=== PATIENT | male | born 1980 | race Caucasian/White ===

== ENCOUNTER 2020-03-08 17:24 | Emergency (ER) | payer OTHER, SELFPAY ==
[2020-03-08 18:39] LABS: #Basophils 0.1 thou/uL (0.0-0.2); #Eosinphils 0.1 thou/uL (0.0-0.7); #Lymphocytes 1.8 thou/uL (1.20-3.40); #Monocytes 0.9 thou/uL (0.11-0.59); #Neutrophils 7.8 thou/uL (1.40-6.50); %Basophils 1.3 % (0.0-1.0); %Eosinophils 1.3 % (0.0-10.0); %Monocytes 8.6 % (0.0-10.0); %Neutrophils 71.8 % (42.0-75.0); Mean Corpuscular HGB CONC 34.3 g/dL (32.0-36.0); Mean Corpuscular Hemoglobin 33.2 pg (27.0-31.0); Mean Corpuscular Volume 96.9 fL (78.0-98.0); Platelet Count 282 thou/uL (130-400); RBC Distribution Width 12.3 % (11.5-14.5); Red Blood Cell (RBC) Count 4.21 mill/uL (4.70-6.10); White Blood Cell (WBC) Count 10.9 thou/uL (4.8-10.8)
[2020-03-08 18:54] LABS: Bacteria/HPF None Seen HPF (None Seen); Bilirubin Negative (Negative); Blood, Urine Trace (Negative); Clarity Clear (Clear); Glucose, Urine (Dipstick) Normal (Negative); Ketone, Urine Trace mg/dL (Negative); Leukocyte Negative Leu/uL (Negative); Nitrite Negative (Negative); Protein, Urine (Dipstick) 20 mg/dL (Neg-Trace); RBC/HPF 0-3 HPF (0-3); Specific Gravity, Urine 1.018 (1.002-1.036); Squamous Epithelial None Seen HPF (0-3); Urobilinogen Normal mg/dL (Less than 2); WBC/HPF 0-3 HPF (0-3)
--- NOTE | 2020-03-08 19:04 | RAD ---
PORTABLE CHEST: 03/08/20 HISTORY: Seizure. Patient hit head. Heart size and mediastinum are within normal limits. The lungs are clear of any infiltrates. No signi ficant bony findings. IMPRESSION: No active intrathoracic disease. POS: OFF
[2020-03-08 19:14] LABS: ALT (SGPT) Less than 7 U/L (8-55); AST (SGOT) 18 U/L (5-34); Albumin 4.4 g/dL (3.5-5.0); Alkaline Phosphatase 93 U/L (40-110); Anion Gap 13 mmol/L (10-20); BUN (Urea Nitrogen) 9 mg/dL (8.9-20.6); Bilirubin, Total 0.6 mg/dL (0.2-1.2); CK (CPK) 302 U/L (30-200); Calc. Creatinine Clearance 0 mL/min (70-130); Calcium 8.6 mg/dL (7.8-10.44); Carbon Dioxide 23 mmol/L (22-29); Chloride 105 mmol/L (98-107); Estimated GFR-MDRD Greater than 90; Globulin 2.5 g/dL (2.4-3.5); Glucose 153 mg/dL (70-105); Potassium 4.1 mmol/L (3.5-5.1); Protein, Total 6.9 g/dL (6.0-8.3); Sodium 137 mmol/L (136-145)
--- NOTE | 2020-03-08 20:06 | CT ---
CT OF BRAIN PERFORMED WITHOUT CONTRAST ENHANCEMENT: 03/08/20 HISTORY: Syncopal episode. Patient fell and hit the floor with some seizure-like activity. The ventricular and cisternal system is within normal limits. There is a cavum septum pellucidum. The re is no signs of intracerebral hemorrhage or extra-axial fluid collections. Mastoid air cells are po patrizia developed, this is more of a developmental process. The visualized sinuses are clear. IMPRESSION: No acute intracranial abnormalities. POS: OFF
== END 2020-03-08 20:10 | disposition home or self-care (01) ==
LOC: ERS 17:24
DX: R55 Syncope and collapse (principal); Z86.79 Personal history of other diseases of the circulatory system; F17.210 Nicotine dependence, cigarettes, uncomplicated
CPT/HCPCS: 36415; 70450; 71045; 80053; 81003; 81015; 82550; 84484; 85025; 93005; 96360; 96361

== ENCOUNTER 2021-11-24 07:06 | Emergency (ER) | payer SELFPAY ==
[2021-11-24 09:35] LABS: Hemoglobin 16.7 g/dL (14.0-18.0); Mean Corpuscular Hemoglobin 33.8 pg (27.0-31.0); Mean Corpuscular Volume 99.4 fL (78.0-98.0); Mean Platelet Volume 8.3 fL (7.4-10.4); RBC Distribution Width 12.1 % (11.5-14.5); Red Blood Cell (RBC) Count 4.95 mill/uL (4.70-6.10); White Blood Cell (WBC) Count 5.1 thou/uL (4.8-10.8)
[2021-11-24 09:38] LABS: Band 6 % (5-11); Lymphocytes 24 % (21-51); Monocytes 3 % (0-10); Neutrophil 67 % (42-75)
[2021-11-24 09:41] LABS: Polychromasia SLIGHT = 2-3 cells (100X) (0-2/hpf)
[2021-11-24 09:47] LABS: MDiff Complete? YES
[2021-11-24 10:06] LABS: Albumin 3.7 g/dL (3.5-5.0)
[2021-11-24 10:07] LABS: Calcium 8.1 mg/dL (7.8-10.44); Chloride 105 mmol/L (98-107); Potassium 4.4 mmol/L (3.5-5.1); Sodium 138 mmol/L (136-145)
[2021-11-24 10:08] LABS: Glucose 97 mg/dL (70-105)
[2021-11-24 10:09] LABS: Globulin 2.4 g/dL (2.4-3.5); Protein, Total 6.1 g/dL (6.0-8.3)
[2021-11-24 10:10] LABS: Anion Gap 10 mmol/L (10-20); Bilirubin, Total 0.2 mg/dL (0.2-1.2); Carbon Dioxide 27 mmol/L (22-29)
[2021-11-24 10:11] LABS: Alkaline Phosphatase 81 U/L (40-110)
[2021-11-24 10:12] LABS: BUN (Urea Nitrogen) 10 mg/dL (8.9-20.6); Calc. Creatinine Clearance 0 mL/min (70-130)
[2021-11-24 10:13] LABS: AST (SGOT) 26 U/L (5-34)
[2021-11-24 10:14] LABS: ALT (SGPT) 16 U/L (8-55); CK (CPK) 115 U/L (30-200)
== END 2021-11-24 11:14 | disposition home or self-care (01) ==
LOC: ERS 07:06
DX: R53.83 Other fatigue (principal); F17.210 Nicotine dependence, cigarettes, uncomplicated
CPT/HCPCS: 36415; 80053; 82550; 85025; 93005; 96360; G0306